=== PATIENT | male | born 1985 | race Hispanic/Latino ===

== ENCOUNTER 2019-02-26 12:11 | Outpatient (CLI) | payer OTHER ==
--- NOTE | 2019-02-26 12:43 | RAD ---
LUMBAR SPINE 3 VIEWS: HISTORY: Right leg pain, back pain FINDINGS: There is mild anterior wedging of the superior endplate of L1 vertebral body. Clinical correlation fo r an age-indeterminate compression fracture is recommended. No subluxation is seen.
--- NOTE | 2019-02-26 12:43 | RAD ---
XR Hip Rt 2-3 View HISTORY: Right leg pain FINDINGS: No fracture or dislocation is identified. Degenerative changes are present.
== END 2019-02-26 12:12 | disposition home or self-care (01) ==
LOC: BICRAD 12:11
PROVIDERS: ATTEND Physician Assistant
DX: M79.604 Pain in right leg (principal)
CPT/HCPCS: 72100